=== PATIENT | male | born 2000 | race Caucasian/White ===

== ENCOUNTER 2019-06-27 16:37 | Outpatient (CLI) | payer SELFPAY ==
[2019-06-27 16:53] LABS: #Eosinphils 0.1 thou/uL (0.0-0.7); #Monocytes 0.5 thou/uL (0.11-0.59); #Neutrophils 4.1 thou/uL (1.40-6.50); %Basophils 0.3 % (0.0-1.0); %Eosinophils 1.3 % (0.0-10.0); %Lymphocytes 29.9 % (28.0-48.0); %Monocytes 7.9 % (0.0-4.0); %Neutrophils 60.7 % (31.0-61.0); Hemoglobin 15.6 g/dL (14.0-18.0); Mean Corpuscular HGB CONC 33.6 g/dL (32.0-36.0); Mean Corpuscular Hemoglobin 30.9 pg (25.0-35.0); Mean Corpuscular Volume 92.1 fL (78.0-98.0); Mean Platelet Volume 7.7 fL (7.4-10.4); Platelet Count 216 thou/uL (130-400); RBC Distribution Width 11.4 % (11.5-14.5); Red Blood Cell (RBC) Count 5.03 mill/uL (4.00-5.20); White Blood Cell (WBC) Count 6.8 thou/uL (4.8-10.8)
== END 2019-06-27 16:38 | disposition home or self-care (01) ==
LOC: LABBT 16:37
PROVIDERS: ATTEND Surgery
DX: Z01.812 Encounter for preprocedural laboratory examination (principal); K40.91 Unilateral inguinal hernia, without obstruction or gangrene, recurrent
CPT/HCPCS: 85025

== ENCOUNTER 2019-07-01 05:51 | Day surgery (SDC) | payer OTHER ==
[2019-06-27 16:57] VITALS: BMI 19.3
[2019-07-01] MEDS ORDERED: Fentanyl 100 MCG/2 ML VIAL ONE ×2 (06:42→08:54)
[2019-07-01] MEDS ORDERED: Bupivacaine/Epinephrine 0.25% 30 ML VIAL ONE (07:02)
--- NOTE | 2019-07-01 12:35 | OP ---
DATE OF PROCEDURE: 07/01/2019 PREOPERATIVE DIAGNOSIS: Right inguinal hernia. PROCEDURE PERFORMED: Right inguinal hernia repair with mesh. INDICATIONS: A 19-year-old male with a painful bulge in his right groin, found to have a hernia. FINDINGS: Right indirect inguinal hernia. DESCRIPTION OF PROCEDURE: After informed consent was obtained, the patient was taken to the operating room, given general mask anesthesia, placed in the supine position. Abdomen was prepped and draped in usual fashion. Local anesthesia was infiltrated subcutaneously and deep. A right inguinal incision was performed. Subcu divided sharply. The fascia and external oblique were incised in direction of its fibers through the external ring. Spermatic cord was isolated with a Tali drain. Cremasteric fibers were . A hernia sac was found. This was dissected from surrounding cord structures down to the internal ring and reduced. Reduction was maintained utilizing a PHS hernia system. The posterior layer was placed in the preperitoneal space, anterior was laid out sutured to the pubic tubercle medially with a 2-0 Prolene suture, tucked under the external oblique fascia. A notch was cut out for the spermatic cord. The cord placed anatomically. The external oblique fascia closed after hemostasis was assured with a running 3-0 Vicryl. Stuart was closed with interrupted 3-0 Vicryl and the skin closed with a running subcuticular 4-0 Rapide. Steri-Strips applied. Sterile bandage applied. The patient tolerated the procedure well, transferred to Recovery in good condition. Sponge and needle count verified correct x2. Job ID: [id number]
== END 2019-07-01 10:00 | disposition home or self-care (01) ==
LOC: SDC 05:51
PROVIDERS: ATTEND Surgery
PROC: 0YU50JZ Supplement Right Inguinal Region with Synthetic Substitute, Open Approach (ICD-10-PCS; principal; 2019-07-01)
DX: K40.90 Unilateral inguinal hernia, without obstruction or gangrene, not specified as recurrent (principal)
CPT/HCPCS: C1781; J0690; J3010